=== PATIENT | male | born 1955 | race African-American/Black ===

== ENCOUNTER 2017-02-08 18:13 | Inpatient (IN) | payer MEDICAID, OTHER ==
[~2017-02-08] VITALS: Ht 175.3 cm; Wt 80.7 kg
--- NOTE | 2017-02-08 18:15 | NUR ---
BIBRA FROM [facility] DUE TO SYNCOPAL EPISODE. PATIENT IS AAO4, APPEARS IN NO APPARENT DISTRESS. RESPIRATION EVEN AND UNLABORED. NO CHEST PAIN. VSS. GOWNED AND PLACED ON TELE MONITOR. WILL CONT TO MONITOR./
--- NOTE | 2017-02-08 18:20 | NUR ---
PT ADMITTED COCCAINE USE 2 DAYS AGO
--- NOTE | 2017-02-08 18:30 | NUR ---
IV STARTED ON RAC 20. BLOOD SAMPLE SENT TO LAB
--- NOTE | 2017-02-08 18:40 | NUR ---
CALLED [facility] FOR TRANSPORT TO [facility] FOR CT SCAN, ETA 20 MIN
[2017-02-08 18:53] LABS: BASOPHILS # (AUTO) 0.1 /CMM (0.0-0.2); BASOPHILS % (AUTO) 1.7 % (0.0-2.0); HEMATOCRIT 41 % (39-51); HEMOGLOBIN 13.6 g/dL (13.5-17.5); LYMPHOCYTES # (AUTO) 1.1 /CMM (0.8-4.8); LYMPHOCYTES % (AUTO) 15.1 % (20.0-44.0); MEAN CORPUSCULAR HEMOGLOBIN 29 PG (26.0-33.0); MEAN CORPUSCULAR HGB CONC 33 g/dl (31.0-36.0); MEAN CORPUSCULAR VOLUME 86 fL (80-96); MONOCYTES # (AUTO) 0.4 /CMM (0.1-1.30); MONOCYTES % (AUTO) 5.3 % (2.0-12.0); NEUTROPHILS # (AUTO) 5.4 /CMM (1.8-8.9); NEUTROPHILS % (AUTO) 77.9 % (43.0-81.0); PLATELET COUNT (AUTO) 204 /CMM (150-450); RDW COEFFICIENT OF VARIATION 14.1 (11.5-15.0); RED BLOOD CELL COUNT(AUTO) 4.77 MIL/uL (4.5-6.0)
[2017-02-08 19:00] LABS: CALCIUM, SERUM 8.6 mg/dL (8.5-10.1)
[2017-02-08 19:02] LABS: POTASSIUM 4.8 mmol/L (3.5-5.1)
[2017-02-08 19:03] LABS: INR 1.08 (0.87-1.13); PROTHROMBIN TIME 11.2 SECS (9.5-12.7)
[2017-02-08 19:06] LABS: ALBUMIN 4.2 g/dL (3.4-5.0); BILIRUBIN,DIRECT 0.1 mg/dL (0.0-0.2); BILIRUBIN,TOTAL 1.7 mg/dL (0.2-1.0); TOTAL PROTEIN, SERUM 7.7 g/dL (6.4-8.2)
[2017-02-08 19:08] LABS: TROPONIN I 0.105 ng/mL (0.00-0.056)
--- NOTE | 2017-02-08 19:13 | NUR ---
CALLED [facility] TO CANCEL TRANSPORT, PER NURSING SUP. CT IS BACK ON
[2017-02-08] MEDS ORDERED: IOHEXOL-350 100 ML VIAL IV ONE (19:21)
[2017-02-08] MEDS ORDERED: IV NS 0.9% 250 ML IV ONE (19:21)
[2017-02-08] MEDS ORDERED: CT SWABBABLE VALVE TRANS SET 1 EA INFUS.SET MC ONE (19:21)
[2017-02-08] MEDS ORDERED: DEXTROSE 50%-WATER 50 ML DISP.SYRIN ONE (19:25)
[2017-02-08] MEDS ORDERED: DEXTROSE 50%-WATER 50 ML DISP.SYRIN IVP ONE (19:30)
--- NOTE | 2017-02-08 19:40 | NUR ---
back from ct.
--- NOTE | 2017-02-08 20:06 | NUR ---
Dr Kohler at bedside for evaluation.
--- NOTE | 2017-02-08 20:13 | NUR ---
CALLED NURSING SUP. FOR TELE BED
[2017-02-08] MEDS ORDERED: ZOLPIDEM TARTRATE 5 MG TABLET PO PRN (20:30)
[2017-02-08] MEDS ORDERED: ONDANSETRON HCL/PF 4 MG/2 ML VIAL IVP PRN (20:30)
[2017-02-08] MEDS ORDERED: Z GUARD REMEDY 2 OZ OINT TP PRN (20:30)
[2017-02-08] MEDS ORDERED: MAGNESIUM HYDROXIDE 30 ML UDC PO PRN (20:30)
[2017-02-08] MEDS ORDERED: NITROGLYCERIN PACKET 1 GM PACKET TOP ONE (20:30)
[2017-02-08] MEDS ORDERED: ASPIRIN 325 MG TABLET PO ONE (20:30)
[2017-02-08] MEDS ORDERED: ACETAMINOPHEN 325 MG TABLET PO PRN (20:30)
--- NOTE | 2017-02-08 20:30 | NUR ---
NON ADMIN ASPIRIN 325 MG PO, PATIENT IS NPO STATUS AND LETHARGIC, MD IS AWARE.
--- NOTE | 2017-02-08 20:37 | NUR ---
Report given to Lashae ZAMORA for kely.
--- NOTE | 2017-02-08 21:14 | NUR ---
Transported patient to tele bed 326-2 via [facility] protocol, no incident noted.
[2017-02-08 21:20] VITALS: BP 137/85
[2017-02-08] MEDS: PANTOPRAZOLE 40 MG TABLET.DR PO SCH (21:30)
[2017-02-08] MEDS ORDERED: IV SET PRIMARY PUMP SET 1 EA INFUS.SET MC ONE (21:39)
[2017-02-08] MEDS: IV NS 0.9% 1,000 ML IV PRN (21:59)
--- NOTE | 2017-02-08 22:00 | NUR ---
RN NOTE; RECEIVED AND ADMITTED A 61 Y/O MALE PT FROM ER. , OX3, BREATHING EVENLY. NO SOB. NO DISTRESS. AMBULATORY TO BED . NO NEURO DEFICIT NOTED HOWEVER DROWSY. A LIMITED HY WAS PROVIDED BY THE PT. NO C/O PAIN OR DISCOMFORT AT THIS TIME. PT PLACED ON HEART MONITOR W/ SR. VS:WNL. BODY CHECK DONE. WILL CONT TO MONITOR AND WILL F/U W/ MD'S ORDER.
[2017-02-08] MEDS: ENOXAPARIN SODIUM 40 MG/0.4 ML DISP.SYRIN SQ SCH (22:03)
--- NOTE | 2017-02-08 22:30 | NUR ---
SPOKE TO [facility] FOR LIVER AND GALL BLADDER US AND ECHO. PER AERIAL APPLICATOR PILOT LIVER US WHICH COVERS THE GALL BLADDER US WILL BE DONE TONIGHT BUT ECHOCARDIOGRAM WILL BE DONE IN AM SINCE IT'S NOT STAT. WILL F/U.
--- NOTE | 2017-02-08 23:41 | NUR ---
RELAYED TROPONIN LEVEL TO DR. ENGLISH W/ NNO. PT REMAINED STABLE W/ NO C/O PAIN OR DISCOMFORT. NO CHEST PAIN. EKG: SR. ALSO SR ON TELE MONITOR W/ RATE OF 77/MIN. AND ONGOING IVF HYDRATION. WILL CONT TO MONITOR
[2017-02-09] VITALS: BP 134/83
--- NOTE | 2017-02-09 03:38 | NUR ---
TELE/RN NOTES RECEIVED PT IN STABLE CONDITION. ASLEEP BUT EASILY AROUSABLE TO NAME. ON ROOM AIR, BREATHING EVEN AND UNLABORED. WILL CONTINUE TO MONITOR
[2017-02-09 04:00] VITALS: BP 137/78
[2017-02-09 06:51] LABS: BASOPHILS % (AUTO) 0.2 % (0.0-2.0); EOSINOPHILS % (AUTO) 0.1 % (0.0-6.0); HEMATOCRIT 38 % (39-51); HEMOGLOBIN 12.6 g/dL (13.5-17.5); LYMPHOCYTES # (AUTO) 1.4 /CMM (0.8-4.8); LYMPHOCYTES % (AUTO) 21.7 % (20.0-44.0); MEAN CORPUSCULAR HEMOGLOBIN 29 PG (26.0-33.0); MEAN CORPUSCULAR HGB CONC 33 g/dl (31.0-36.0); MEAN CORPUSCULAR VOLUME 88 fL (80-96); MONOCYTES # (AUTO) 0.3 /CMM (0.1-1.30); MONOCYTES % (AUTO) 5.1 % (2.0-12.0); NEUTROPHILS # (AUTO) 4.6 /CMM (1.8-8.9); NEUTROPHILS % (AUTO) 72.9 % (43.0-81.0); PLATELET COUNT (AUTO) 200 /CMM (150-450); RDW COEFFICIENT OF VARIATION 14.8 (11.5-15.0); RED BLOOD CELL COUNT(AUTO) 4.32 MIL/uL (4.5-6.0); WHITE BLOOD COUNT (AUTO) 6.3 K/uL (4.3-11.0)
[2017-02-09 06:52] VITALS: BP 139/84
[2017-02-09] MEDS: PANTOPRAZOLE 40 MG TABLET.DR PO SCH ×2 (07:30→11:13)
--- NOTE | 2017-02-09 07:30 | NUR ---
TELE/RN CLOSING NOTES PT ASLEEP, EASILY AROUSABLE TO NAME. ON ROOM AIR, NO SOB OR DISTRESS NOTED. DENIES PAIN. IV TO RAC PATENT AND INTACT RUNNING IVF ORDERED. EKG DONE THIS AM. URINE SPECIMEN COLLECTED AND PLACED IN THE FRIDGE. BED IN LOW/LOCKED POSITION WITH CALL LIGHT IN REACH. BED RAILS UPX2. ALL NEEDS MET AND ATTENDED TO. MADE PT COMFORTABLE THROUGHOUT SHIFT. ENDORSED TO AM SHIFT HUE.
[2017-02-09 07:33] LABS: CANNABINOID, URINE NEGATIVE (NEGATIVE); PHENCYCLIDINE SCREEN,URINE NEGATIVE (NEGATIVE)
[2017-02-09 07:41] LABS: ALBUMIN 3.6 g/dL (3.4-5.0); BILIRUBIN,TOTAL 1.3 mg/dL (0.2-1.0); CREATININE 0.9 mg/dL (0.6-1.3); MAGNESIUM 2.5 mg/dL (1.8-2.4); POTASSIUM 3.5 mmol/L (3.5-5.1); TOTAL PROTEIN, SERUM 6.8 g/dL (6.4-8.2)
[2017-02-09 08:00] VITALS: BP 130/78
[2017-02-09] MEDS: ASPIRIN 81 MG TAB.CHEW PO SCH (09:00)
--- NOTE | 2017-02-09 10:03 | NUR ---
RN NOTES HYDROTECHNICAL SPECIALIST JACK LEWIS ORDERED REGULAR DIET.
[2017-02-09] MEDS: MAG HYDROX/AL HYDROX/SIMETH 30 ML UDC PO PRN ×2 (10:49→21:09)
--- NOTE | 2017-02-09 10:52 | NUR ---
RN NOTES PATIENT IS COMPLAINING OF HEARTBURN. MAALOX WAS GIVEN.
--- NOTE | 2017-02-09 11:15 | NUR ---
PATIENT STATED THAT HEARTBURN WENT AWAY AFTER TAKING MAALOX AND PROTONIX.
[2017-02-09] MEDS ORDERED: K PHOS NEUTRAL 250 MG TABLET PO ONE (12:30)
[2017-02-09 13:12] LABS: THYROID STIMULATING HORMONE 1.59 uIU/mL (0.358-3.74)
--- NOTE | 2017-02-09 13:25 | NUR ---
Social service consult requested by Dr. Kohler for homelessness. Per H&P report by Dr. Kohler, patient is a 61-year old male with a PMHx of HTN. Patient is currently homeless and lives on the streets. He stated, "I ventured somewhere I shouldn't have gone." When asked to elaborate, he stated that he "shouldn't be in this area" and that the [facility] area was safer. Patient was admitted to [facility] for syncope. SW met with patient at his bedside. Patient was alert and oriented x4. He presented with a slightly irritable mood, his affect was blunted, and his hygiene was poor. His thought process displayed blocking. Pt reported being homeless for a few years. He stated that he liked the area by the [facility] and wanted to return there. Patient reported a history of schizophrenia with paranoid ideation. However, patient's current thought content did not display paranoid ideation. He reported smoking less than a pack of cigarettes per day. Patient first stated that he had been sober from all other substances for a year. However, he later confirmed that he drinks occasionally (would not specify amount) and that he smokes crack cocaine. Patient requested assistance obtaining a blanket. SW will explore if obtaining a blanket for the patient is possible. Additionally, pt requested assistance with food ngo and housing information. SW will provide the patient with housing and food bank resources. Patient refused substance abuse related resources and mental health clinic resources. He stated that he already visited mental health clinics. He would not specify which clinic and instead said "a lot of clinics." Patient requested to be discharged back to the streets in the [facility] area. He requested to be discharged to the intersection of [facility] [address] [facility], [address]. INDIGO will update case management regarding patient's discharge plan.
[2017-02-09 16:00] VITALS: BP 126/74
--- NOTE | 2017-02-09 19:35 | NUR ---
RN CLOSING NOTES ALL NEEDS PROVIDED, ATTENDED AND ANTICIPATED. ON TELE MONITOR SR HEART RATE IN THE 80'S. KEPT PATIENT CLEAN AND COMFORTABLE IN BED, CALL LIGHT WITHIN PATIENT REACH, WILL CONTINUE TO MONITOR ACCORDINGLY. ENDORSED TO NEXT SHIFT RN TO CONTINUE CARE
[2017-02-09 20:00] VITALS: BP 125/75
[2017-02-09] MEDS: HYDROCODONE/APAP 5/325MG 1 EACH TABLET PO PRN (21:10)
[2017-02-09] MEDS: ENOXAPARIN SODIUM 40 MG/0.4 ML DISP.SYRIN SQ SCH (21:11)
[2017-02-09] MEDS ORDERED: ATORVASTATIN 10 MG TABLET PO SCH (22:00)
[2017-02-10] VITALS: BP 136/85
[2017-02-10 04:00] VITALS: BP 131/93
--- NOTE | 2017-02-10 06:50 | NUR ---
FLATWORK IRONER NOTES AWAKE & RESPONSIVE. NOT IN ANY DISTRESS. NO SOB NOTED. DENIES ANY PAIN OR DISCOMFORT AT THIS TIME. ON TELE SR @ 63 WITH WITH IV-HL PATENT & INTACT. CALL LIGHT WITHIN REACH. BED IN LOWEST POSITION. SR UP X 2 FOR SAFETY. WILL ENDORSE TO NEXT SHIFT.
[2017-02-10 07:00] VITALS: BP 146/91
--- NOTE | 2017-02-10 07:29 | NUR ---
PHARMACY TECHNICIAN ASSISTANT OPENING RECEIVED PATIENT A/OX4 DENIES SOB, DIFFICULTY BREATHING, DIZZINESS. STATES PAIN IS BAD AT THIS TIME AND WOULD LIKE A NORCO FOR PAIN. PATIENT STATES NO OTHER NEEDS AT THIS TIME. CALL LIGHT IN REACH, BED LOWERED AND LOCKED, RAILS UPX3 FOR SAFETY AND WILL ROUND Q2H OR LESS PER NEEDS.
[2017-02-10 07:32] LABS: CALCIUM, SERUM 7.8 mg/dL (8.5-10.1); CREATININE 0.9 mg/dL (0.6-1.3); PHOSPHORUS 2.3 mg/dL (2.5-4.9); POTASSIUM 3.7 mmol/L (3.5-5.1)
[2017-02-10] MEDS: PANTOPRAZOLE 40 MG TABLET.DR PO SCH (07:37)
[2017-02-10] MEDS: IV NS 0.9% 1,000 ML IV PRN (07:37)
[2017-02-10] MEDS: HYDROCODONE/APAP 5/325MG 1 EACH TABLET PO PRN (07:37)
[2017-02-10 08:00] VITALS: BP_SYST 107; BP_SYST 146; BP_DIAS 72; BP_DIAS 89
--- NOTE | 2017-02-10 08:08 | NUR ---
HUMAN SERVICES PROFESSIONAL NOTES PER JACK GAMBLE DC IVF PATIENT GOOD ORAL INTAKE
[2017-02-10] MEDS: ASPIRIN 81 MG TAB.CHEW PO SCH (08:18)
[2017-02-10] MEDS ORDERED: FAMOTIDINE (20 MG) 20 MG TABLET PO SCH (09:00)
[2017-02-10 12:21] LABS: H. PYLORI AB IgA <9.0 units (0.0-8.9)
--- NOTE | 2017-02-10 12:34 | NUR ---
MS RN NOTES NOTIFIED JACK OF LOW PHOS. PER MD CHRONIC AND NO REPLACEMENT NECESSARY
[2017-02-10] MEDS ORDERED: K PHOS NEUTRAL 250 MG TABLET PO ONE (14:00)
--- NOTE | 2017-02-10 15:10 | NUR ---
MS HOGSHEAD PRESS OPERATOR PATIENT STABLE NO COMPLICATIONS NO CHANGES THROUGHOUT DAY. PATIENT EDUCATED ON DC MATERIAL AND STATED UNDERSTANDING DC SIGNED AND BELONGINGS ALL ACCOUNTED FOR. PATIENT STATED UNDERSTANDING OF PUD, DIET, AND PEPCID. PATIENT TAXI PER IVONNE GAMBLE FOR DESTINATION. PATIENT STATES NO NEEDS. ALL DUE MEDS GIVEN AND ALL NEEDS MET. IV REMOVED PRESSURE AND DRESSING APPLIED NO BLEEDING. PATIENT ASSISTED TO TAXI BY GLAZING MACHINE OPERATOR IN STABLE CONDITION.
== END 2017-02-10 15:00 | disposition home or self-care (01) | DRG 190 ==
LOC: ER 18:17 → TELE 20:40 → MED 02-10 08:56
PROVIDERS: ADMIT Internal Medicine; ATTEND Internal Medicine
DX: I21.4 Non-ST elevation (NSTEMI) myocardial infarction (principal); N17.0 Acute kidney failure with tubular necrosis; G92 Toxic encephalopathy; E87.1 Hypo-osmolality and hyponatremia; E11.65 Type 2 diabetes mellitus with hyperglycemia; J43.9 Emphysema, unspecified; I10 Essential (primary) hypertension; F17.210 Nicotine dependence, cigarettes, uncomplicated; F14.10 Cocaine abuse, uncomplicated; E86.0 Dehydration; F12.10 Cannabis abuse, uncomplicated; F20.9 Schizophrenia, unspecified; E83.39 Other disorders of phosphorus metabolism; K29.70 Gastritis, unspecified, without bleeding; K27.9 Peptic ulcer, site unspecified, unspecified as acute or chronic, without hemorrhage or perforation; Z59.0 Homelessness; F15.10 Other stimulant abuse, uncomplicated
CPT/HCPCS: 36415; 70450-TC; 71010-TC; 72125-TC; 76705-TC; 80048-TC; 80053-TC; 80061-TC; 80076-TC; 80305; 82962-TC; 83735-TC; 84100-TC; 84443-TC; 84484-TC; 85025-TC; 85730-TC; 86677; 87081-TC; 93307-TC; A4606; G0480; J1650; J7030; J7050; Q9967; Z7610

== ENCOUNTER 2020-06-14 10:07 | Emergency (ER) | payer MEDICARE, OTHER ==
[~2020-06-14] VITALS: Ht 175.3 cm; Wt 68.0 kg
--- NOTE | 2020-06-14 10:07 | NUR ---
PT BIB SELF C/O SI NO SPECIFIC PLAN. PT IS AAXO4, NOT IN RESPIRATORY DISTRESS, V/S STABLE, KEPT RESTED AND COMFORTABLE. WILL CONTINUE TO MONITOR. SITTER AT BEDSIDE.
--- NOTE | 2020-06-14 10:19 | NUR ---
CALLED SECURITY FOR PT WANDING.
--- NOTE | 2020-06-14 10:22 | NUR ---
PT SEEN AND EXAMINED BY .
--- NOTE | 2020-06-14 10:33 | NUR ---
ER PHLEB AT BEDSIDE FOR BLOOD DRAW.
[2020-06-14 10:41] LABS: BASOPHILS % (AUTO) 1.5 % (0.0-2.0); EOSINOPHILS % (AUTO) 0.6 % (0.0-6.0); HEMATOCRIT 37 % (39-51); LYMPHOCYTES # (AUTO) 1.1 /CMM (0.8-4.8); LYMPHOCYTES % (AUTO) 38.4 % (20.0-44.0); MEAN CORPUSCULAR HGB CONC 33 g/dl (31.0-36.0); MEAN CORPUSCULAR VOLUME 104 fL (80-96); MONOCYTES # (AUTO) 0.2 /CMM (0.1-1.30); MONOCYTES % (AUTO) 6.9 % (2.0-12.0); NEUTROPHILS # (AUTO) 1.5 /CMM (1.8-8.9); NEUTROPHILS % (AUTO) 52.6 % (43.0-81.0); PLATELET COUNT (AUTO) 273 /CMM (150-450); RED BLOOD CELL COUNT(AUTO) 3.53 MIL/uL (4.5-6.0); WHITE BLOOD COUNT (AUTO) 2.9 K/uL (4.3-11.0)
--- NOTE | 2020-06-14 10:42 | NUR ---
URINE SPECIMEN COLLECTED AND SENT TO LAB.
[2020-06-14 10:55] LABS: ALBUMIN 3.7 g/dL (3.4-5.0); BILIRUBIN,DIRECT 0.2 mg/dL (0.0-0.2); BILIRUBIN,TOTAL 0.5 mg/dL (0.2-1.0); CALCIUM, SERUM 8.8 mg/dL (8.5-10.1); CREATININE 0.8 mg/dL (0.6-1.3); POTASSIUM 3.9 mmol/L (3.5-5.1); SALICYLATE 3.7 mg/dL (2.8-20.0)
[2020-06-14 10:56] LABS: APPEARANCE,URINE Clear (CLEAR); BILIRUBIN,URINE SMALL (NEGATIVE); BLOOD, URINE Trace-intact Ery/uL (NEGATIVE); COLOR,URINE Dark (YELLOW); KETONES,URINE Negative (NEGATIVE); LEUKOCYTE ESTERASE ,URINE Negative (NEGATIVE); NITRITE, URINE Negative (NEGATIVE); PH,URINE 5.5 (5.0-8.0); PROTEIN,URINE 30 mg/dl (NEGATIVE); UGLUCOSE Negative (NEGATIVE); UROBILINOGEN,URINE 0.2 EU/dL (0.2)
[2020-06-14 10:57] LABS: BACTERIA,URINE Rare /HPF (None Seen); RBC,URINE 0-2 /HPF (0-2); SQUAMOUS EPITHELIAL CELL,UR Few /HPF (None Seen); WBC,URINE 0-2 /HPF (0-3)
--- NOTE | 2020-06-14 18:54 | NUR ---
PT ASLEEP ON BED BUT EASILY AROUSABLE. NOT IN RESPIRATORY DISTRESS, V/S STABLE, KEPT RESTED AND COMFORTABLE. WILL CONTINUE TO MONITOR.
[2020-06-14] MEDS ORDERED: ONDANSETRON 4 MG TAB.RAPDIS ONE (21:46)
[2020-06-14] MEDS ORDERED: CHLORDIAZEPOXIDE HCL 25 MG CAPSULE PO ONE (22:00)
[2020-06-14] MEDS ORDERED: ONDANSETRON 4 MG TAB.RAPDIS SL ONE (22:00)
[2020-06-14] MEDS ORDERED: CHLORDIAZEPOXIDE HCL 25 MG CAPSULE ONE (22:32)
--- NOTE | 2020-06-14 22:57 | NUR ---
Patient discharged to home in stable condition. Written and verbal after care instructions given. Patient verbalizes understanding of instruction.
[2020-06-14 23:53] VITALS: BP 131/83
== END 2020-06-14 23:04 | disposition home or self-care (01) ==
LOC: ER 10:10
DX: T51.8X1A Toxic effect of other alcohols, accidental (unintentional), initial encounter (principal); F32.9 Major depressive disorder, single episode, unspecified; D53.9 Nutritional anemia, unspecified; R45.851 Suicidal ideations; I10 Essential (primary) hypertension; Z98.890 Other specified postprocedural states; Z59.0 Homelessness; Y92.9 Unspecified place or not applicable
CPT/HCPCS: 36415; 80048; 80076; 80305; 80307 ×2; 80329; 81001; 85025; 99285; G0480; Q0162; 81000-TC

== ENCOUNTER 2020-06-15 07:28 | Emergency (ER) | payer MEDICARE, OTHER ==
[~2020-06-15] VITALS: Ht 175.3 cm; Wt 68.0 kg
--- NOTE | 2020-06-15 07:28 | NUR ---
PT BIB BROTHER C/O SI "I WANT TO RUN THRU TRAFFIC" PT IS AAOX4, NOT IN RESPIRATORY DISTRESS, V/S STABLE, KEPT RESTED AND COMFORTABLE. SITTER AT BEDSIDE. WILL CONTINUE TO MONITOR.
--- NOTE | 2020-06-15 07:30 | NUR ---
URINE SPECIMEN COLLECTED AND SENT TO LAB.
--- NOTE | 2020-06-15 07:47 | NUR ---
ER PHLEB AT BEDSIDE FOR BLOOD DRAW.
[2020-06-15 07:50] LABS: APPEARANCE,URINE Clear (CLEAR); BILIRUBIN,URINE SMALL (NEGATIVE); BLOOD, URINE Negative Ery/uL (NEGATIVE); COLOR,URINE Yellow (YELLOW); KETONES,URINE 15 (NEGATIVE); LEUKOCYTE ESTERASE ,URINE Negative (NEGATIVE); NITRITE, URINE Negative (NEGATIVE); PROTEIN,URINE 100 mg/dl (NEGATIVE); UGLUCOSE Negative (NEGATIVE)
[2020-06-15 07:51] LABS: BACTERIA,URINE Rare /HPF (None Seen); RBC,URINE 0-2 /HPF (0-2); SQUAMOUS EPITHELIAL CELL,UR Few /HPF (None Seen); WBC,URINE 0-2 /HPF (0-3)
[2020-06-15 08:15] LABS: BASOPHILS % (AUTO) 0.7 % (0.0-2.0); EOSINOPHILS % (AUTO) 0.2 % (0.0-6.0); HEMATOCRIT 38 % (39-51); HEMOGLOBIN 12.3 g/dL (13.5-17.5); LYMPHOCYTES # (AUTO) 0.6 /CMM (0.8-4.8); LYMPHOCYTES % (AUTO) 22.1 % (20.0-44.0); MEAN CORPUSCULAR HGB CONC 33 g/dl (31.0-36.0); MEAN CORPUSCULAR VOLUME 102 fL (80-96); MONOCYTES # (AUTO) 0.2 /CMM (0.1-1.30); NEUTROPHILS # (AUTO) 1.8 /CMM (1.8-8.9); PLATELET COUNT (AUTO) 233 /CMM (150-450); RED BLOOD CELL COUNT(AUTO) 3.69 MIL/uL (4.5-6.0); WHITE BLOOD COUNT (AUTO) 2.7 K/uL (4.3-11.0)
[2020-06-15 08:16] LABS: ALANINE AMINOTRANSFERASE 46 U/L (12-78); ALBUMIN 3.9 g/dL (3.4-5.0); ALCOHOL, BLOOD < 3 mg/dL (0-0); ALKALINE PHOSPHATASE 87 U/L (46-116); ASPARTATE AMINOTRANSFERASE 66 U/L (15-37); BILIRUBIN,DIRECT 0.3 mg/dL (0.0-0.2); BILIRUBIN,TOTAL 0.9 mg/dL (0.2-1.0); CALCIUM, SERUM 9.2 mg/dL (8.5-10.1); CARBON DIOXIDE 29 mmol/L (21-32); CHLORIDE 98 mmol/L (98-107); CREATININE 0.8 mg/dL (0.6-1.3); GLUCOSE 123 mg/dL (74-106); POTASSIUM 3.6 mmol/L (3.5-5.1); SODIUM SERUM 136 mmol/L (136-145); TOTAL PROTEIN, SERUM 8.4 g/dL (6.4-8.2); UREA NITROGEN, BLOOD 11 mg/dL (7-18)
--- NOTE | 2020-06-15 10:18 | NUR ---
ASSESSED PT ON BED AWAKE AND ALERT, NOT IN RESPIRATORY DISTRESS, V/S STABLE, KEPT RESTED AND COMFORTABLE. WILL CONTINUE TO MONITOR.
--- NOTE | 2020-06-15 10:23 | NUR ---
CLINICALS AND FACE SHEET FAXED TO [facility].
--- NOTE | 2020-06-15 11:32 | NUR ---
CALLED INTAKE [phone] JF WILL CALL US BACK.
[2020-06-15 11:56] VITALS: BP 141/82
--- NOTE | 2020-06-15 12:06 | NUR ---
PT IS ACCEPTED AT [facility] UNDER THE CARE OF DR. RIVERS. CALL [phone] EXT [phone] FOR REPORT.
--- NOTE | 2020-06-15 12:15 | NUR ---
CALLED [facility] FOR BLS TRANSFER. ETA [phone]
--- NOTE | 2020-06-15 13:26 | NUR ---
REPORT GIVEN TO SERA GUZMAN FOR HUE AT THE [facility]
--- NOTE | 2020-06-15 13:26 | NUR ---
REPORT GIVEN TO SERA GUZMAN FOR HUE
--- NOTE | 2020-06-15 13:35 | NUR ---
PT LEFT ON GURNEY WITH 2 AMBULANCE STAFF ON STABLE CONDITION. REPORT GIVEN TO AMBULANCE STAFF.
== END 2020-06-15 13:38 ==
LOC: ER 07:30
DX: R45.851 Suicidal ideations (principal); I10 Essential (primary) hypertension; Z98.890 Other specified postprocedural states; Z59.0 Homelessness
CPT/HCPCS: 36415; 80048-TC; 80076-TC; 80305; 81000-TC; 85025-TC; G0480